=== PATIENT | male | born 1975 | race Caucasian/White ===

== ENCOUNTER → 2024-05-28 12:44 | Outpatient (REF) | payer OTHER, SELFPAY | LOC: HWRAD 12:44 | PROVIDERS: ATTENDING PHYSICIAN Physician Assistant Medical | DX: R59.0 Localized enlarged lymph nodes (principal) | CPT/HCPCS: 76536 ==

== ENCOUNTER → 2024-07-08 14:17 | Outpatient (REF) | payer OTHER, SELFPAY | LOC: RAD 14:17 | PROVIDERS: ATTENDING PHYSICIAN Surgery; FAMILY PHYSICIAN Physician Assistant Medical | DX: R59.0 Localized enlarged lymph nodes (principal) | CPT/HCPCS: 70491; 71260; Q9967 ==